=== PATIENT | female | born 1970 | race Caucasian/White ===

== ENCOUNTER → 2021-04-18 | Day surgery (SDC) | payer OTHER ==
[~2021-04-18] VITALS: Ht 152.4 cm; Wt 105.3 kg
[~2021-04-18] MED LIST: ACETAMINOPHEN500 M1 PO; ALLOPURINOL 10100 MG PO; CETIRIZINE HCL10 MG PO; CITALOPRAM HBR10 MG PO; COLACE100 MG PO; CYMBALTA20 MG PO; EPIPEN0.3 MG/0.3 IM; HUMALOG100 UNIT/3 SC; IMITREX100 MG PO; LANTUS **100 UNITS/ SC; LIPITOR20 MG PO; LISINOPRIL-HCT1 EACH PO; MAG-OXIDE 400M400 MG PO; MELOXICAM15 MG PO; METFORMIN HCL1000 M2 PO; OXY-IR 5MG5 MG PO; PERCOCET 5-3251 EACH PO; ROSUVASTATIN CA20 MG PO; SINGULAIR10 MG PO; SPIRONOLACTONE100 M1 PO; ULORIC80 MG PO; VITAMIN B122500 MC1 PO; VITAMIN C500 M5 PO; VITAMIN D PO; VITAMIN D3125 MC1 PO; XARELTO10 MG PO; ZOLPIDEM TARTRA10 MG PO; [UNRECOGNIZED DRUG - OTHER] PO
[2021-04-18 09:01] LABS: BUN/CREAT RATIO (CALC) 21.2 RATIO; CREATININE 0.85 mg/dL (0.51-0.95)
== END | disposition home or self-care (01) ==
LOC: FAS 04-13 11:00
PROVIDERS: Anesthesiology
DX: K80.12 Calculus of gallbladder with acute and chronic cholecystitis without obstruction (principal); K82.8 Other specified diseases of gallbladder; E66.01 Morbid (severe) obesity due to excess calories; L68.0 Hirsutism; M79.7 Fibromyalgia; E78.00 Pure hypercholesterolemia, unspecified; G89.29 Other chronic pain; M54.2 Cervicalgia; M81.0 Age-related osteoporosis without current pathological fracture; E11.42 Type 2 diabetes mellitus with diabetic polyneuropathy; Z88.6 Allergy status to analgesic agent; Z88.8 Allergy status to other drugs, medicaments and biological substances; Z79.4 Long term (current) use of insulin; G43.909 Migraine, unspecified, not intractable, without status migrainosus; Z68.42 Body mass index [BMI] 45.0-49.9, adult; I11.9 Hypertensive heart disease without heart failure; R94.31 Abnormal electrocardiogram [ECG] [EKG]; Z96.651 Presence of right artificial knee joint; G47.30 Sleep apnea, unspecified
CPT/HCPCS: 36415; 74300; 80048; 93005; C1758; J0690; J1100; J1170; J1644; J1885; J2250; J2370; J2405; J2704; J2710; J3010; J7120; Q9967

== ENCOUNTER 2021-11-26 19:16 | Emergency (ER) | payer OTHER | END 2021-11-26 22:30 | disposition home or self-care (01) | LOC: FER 19:16 | DX: M54.2 Cervicalgia (principal); E11.9 Type 2 diabetes mellitus without complications; I10 Essential (primary) hypertension; Z88.6 Allergy status to analgesic agent; Z88.8 Allergy status to other drugs, medicaments and biological substances; Z91.041 Radiographic dye allergy status; Z79.84 Long term (current) use of oral hypoglycemic drugs; Z28.310 Unvaccinated for COVID-19 | CPT/HCPCS: 72125 ==